=== PATIENT | female | born 2000 | race Caucasian/White ===

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

== ENCOUNTER 2019-03-25 10:10 | Emergency (ER) | payer OTHER ==
[~2019-03-25] VITALS: Ht 165.1 cm; Wt 51.3 kg
[~2019-03-25 10:10] MED LIST: CARAFATE1 GM PO; PROTONIX 20 MG20 MG PO
[2019-03-25 12:33] LABS: ABSOLUTE NEUTROPHILS 4.2 thou/uL (1.4-8.2); BASOPHILS 1.1 % (0.0-2.0); EOSINOPHILS 0.9 % (0.0-3.0); HEMATOCRIT 37.8 % (37.0-47.0); HEMOGLOBIN 12.5 gm/dL (12.0-15.0); LYMPHOCYTES 19.6 % (24.0-44.0); MCH 31.3 pg (26.0-34.0); MCV 94.9 fL (80.0-100.0); MONOCYTES 7.7 % (1.0-8.0); PLATELET COUNT 180 thou/uL (150-400); POLYS 70.7 % (36.0-66.0); RBC 3.98 mil/uL (4.20-5.00); RDW 12.7 % (10.5-14.5); WBC 5.9 thou/uL (4.0-11.0)
[2019-03-25 12:47] LABS: ALBUMIN 4.1 g/dL (3.4-5.0); CREATININE 0.6 mg/dL (0.6-1.0); POTASSIUM 3.8 mmol/L (3.5-5.1); TOTAL BILIRUBIN 0.5 mg/dL (<0.1-1.0); TOTAL PROTEIN 7.3 g/dL (6.4-8.2)
[2019-03-25 12:53] LABS: CALCIUM 9.8 mg/dL (8.5-10.1)
[2019-03-25 14:25] LABS: URINE BILIRUBIN NEGATIVE (Negative); URINE BLOOD NEGATIVE (Negative); URINE CLARITY CLEAR; URINE COLOR YELLOW; URINE GLUCOSE-RANDOM* NEGATIVE (Negative); URINE KETONES NEGATIVE (Negative); URINE LEUKOCYTES-REFLEX NEGATIVE (Negative); URINE NITRITE-REFLEX NEGATIVE (Negative); URINE PROTEIN (DIPSTICK) NEGATIVE (Negative); URINE UROBILINOGEN 0.2 E.U./dl (0.2-1.0)
[2019-03-25] MEDS ORDERED: PRENATAL VITAM1 EAC1 PO (15:01)
[2019-03-25 15:11] VITALS: BP 112/68
== END 2019-03-25 15:12 | disposition home or self-care (01) ==
LOC: ER 10:10
PROVIDERS: Emergency Medicine
DX: O26.891 Other specified pregnancy related conditions, first trimester (principal); R10.30 Lower abdominal pain, unspecified; Z3A.01 Less than 8 weeks gestation of pregnancy

== ENCOUNTER 2021-03-01 19:10 | Emergency (ER) | payer BC, OTHER ==
[~2021-03-01] VITALS: Ht 165.1 cm; Wt 47.6 kg
[~2021-03-01 19:10] MED LIST changes: +PRENATAL VITAM1 EAC1 PO
[2021-03-01 19:19] VITALS: BP 127/74
== END 2021-03-01 19:35 | disposition home or self-care (01) ==
LOC: ER 19:10
DX: Z32.02 Encounter for pregnancy test, result negative (principal)